=== PATIENT | female | born 2000 | race Caucasian/White ===

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

== ENCOUNTER 2022-05-05 14:08 | Outpatient (CLI) | payer OTHER, SELFPAY ==
[2022-05-05 15:35] LABS: hCG Titer Quant., Serum < 1 mIU/mL (1-3)
== END 2022-05-05 23:59 | disposition home or self-care (01) ==
PROVIDERS: Visit Provider Student in an Organized Health Care Education/Training Program
DX: Z32.00 Encounter for pregnancy test, result unknown (principal)
CPT/HCPCS: 36415; 84702